=== PATIENT | male | born 1980 | race Caucasian/White ===

== ENCOUNTER 2017-01-09 10:07 | Emergency (ER) | payer BC ==
[~2017-01-09] VITALS: Ht 182.9 cm; Wt 106.8 kg
[~2017-01-09 10:07] MED LIST: DEXILANT60 MG PO; IMITREX100 MG PO; LEVAQUIN 5500 MG/TA1 PO; LIPITOR 40MG TA40 MG PO; MAREPA1200 MG PO; NORCO 325 MG-51 TAB PO; PREVACID 30MG30 M1 PO; TENORMIN 5050 MG/TAB PO; TOPAMAX50 MG PO; TRILIPIX 135MG PO
[2017-01-09 10:11] VITALS: BP 118/63; PULSE 64; TEMP 98.6
[2017-01-09] MEDS ORDERED: FLEXERIL 1010 MG/TAB PO (11:51)
[2017-01-09] MEDS ORDERED: NORCO 325 MG-7.1 TAB PO (11:51)
== END 2017-01-09 12:02 | disposition home or self-care (01) ==
LOC: COL.ER 10:07
DX: S39.92XA Unspecified injury of lower back, initial encounter (principal); I10 Essential (primary) hypertension; F17.210 Nicotine dependence, cigarettes, uncomplicated; Z90.89 Acquired absence of other organs; Z87.81 Personal history of (healed) traumatic fracture; Z98.890 Other specified postprocedural states; X50.0XXA Overexertion from strenuous movement or load, initial encounter; Y92.69 Other specified industrial and construction area as the place of occurrence of the external cause
CPT/HCPCS: J1170; J1885; J3360

== ENCOUNTER → 2020-03-01 | Outpatient (CLI) | payer BC ==
[~2020-03-01] MED LIST changes: +FLEXERIL 1010 MG/TAB PO; +NORCO 325 MG-7.1 TAB PO
== END ==
LOC: ZCOL.LAB 14:49
DX: Z20.828 Contact with and (suspected) exposure to other viral communicable diseases (principal)